=== PATIENT | male | born 1945 | race Caucasian/White ===

== ENCOUNTER 2016-09-10 16:36 | Emergency (ER) | payer MEDICARE, OTHER ==
[~2016-09-10 16:36] MED LIST: ACID CONTROL150 MG PO; COREG 3.125M3.125 MG PO; ECOTRIN81 MG PO; FLAGYL500 MG PO; HYDROCORTISONE30 G3 TOP; LEVAQUIN TAB 5500 MG PO; LISINOPRIL5 MG PO; LOPRESSOR 25 MG25 MG PO; NIZORAL120 ML TOP; PREDNISOLONE SO10 MG PO; PREDNISONE 10 M10 MG PO; PROVENTIL HFA 61 INH INH; SYMBICORT 16010.2 GM INH; SYMBICORT 80-10.2 GM INH; TUDORZA PRESS400 MCG INH; TYLENOL W/CODEIN1 E1 PO; VENTOLIN HFA8 GM INH; ZANTAC150 MG PO; ZESTRIL5 MG PO; ZOCOR 40 MG TAB40 MG PO
[2016-09-10 17:36] LABS: HEMOGLOBIN 16.5 gm/dl (14.0-17.5); RED BLOOD COUNT 5.37 M/UL (4.20-5.50); WHITE BLOOD COUNT 10.3 K/UL (4.5-11.0)
[2016-11-13] MEDS ORDERED: COMBIVENT0.074 GM/I INH (07:06)
[2016-11-13] MEDS ORDERED: COREG 3.125M3.125 MG PO (07:07)
[2016-11-13] MEDS ORDERED: ACID REDUCER150 MG PO (07:08)
[2016-11-13] MEDS ORDERED: CENTRUM SILVER1 EAC1 PO (07:08)
[2016-11-13] MEDS ORDERED: VENTOLIN INHALER INH (07:10)
[2016-11-13] MEDS ORDERED: NORCO 7.5-3251 EACH PO (09:51)
[2016-12-24] MEDS ORDERED: METOPROLOL TART25 MG PO (07:07)
[2016-12-24] MEDS ORDERED: SYMBICORT 16010.2 GM INH (07:07)
[2016-12-24] MEDS ORDERED: SIMVASTATIN40 MG PO (07:10)
== END 2016-09-11 10:45 | disposition home or self-care (01) ==
LOC: ER1 16:36 → ZEROF 09-11 08:00 → ER1 09-11 10:45
PROVIDERS: Emergency Medicine
DX: K57.92 Diverticulitis of intestine, part unspecified, without perforation or abscess without bleeding (principal); I71.4 Abdominal aortic aneurysm, without rupture; K80.20 Calculus of gallbladder without cholecystitis without obstruction; J18.1 Lobar pneumonia, unspecified organism; N43.3 Hydrocele, unspecified; R11.2 Nausea with vomiting, unspecified; D69.6 Thrombocytopenia, unspecified; I11.0 Hypertensive heart disease with heart failure; I50.22 Chronic systolic (congestive) heart failure; J44.9 Chronic obstructive pulmonary disease, unspecified; Z87.891 Personal history of nicotine dependence; Z95.810 Presence of automatic (implantable) cardiac defibrillator; Z79.82 Long term (current) use of aspirin; Z79.899 Other long term (current) drug therapy
CPT/HCPCS: 36415; 71010; 80053; 82150; 82550; 82553; 83605; 83690; 83874; 84484; 85025; 87040; 87077; 87186; 93005; 94664; 96361; 96365; 96366; 96367; 96375; 96376; 99284; J1956; J2270; J2405; J2930; J7050; Q9962

== ENCOUNTER 2016-09-16 20:20 | Observation (INO) | payer MEDICARE, OTHER ==
[~2016-09-16] VITALS: Ht 185.4 cm; Wt 70.3 kg
[2016-09-16 21:42] LABS: HEMOGLOBIN 14.7 gm/dl (14.0-17.5); RED BLOOD COUNT 4.8 M/UL (4.20-5.50); WHITE BLOOD COUNT 13.8 K/UL (4.5-11.0)
[2016-09-16 22:07] LABS: BUN/CREATININE RATIO 18 (0-10)
[2016-09-17] MEDS ORDERED: VENTOLIN/PROVE0.5 ML INH (02:16)
[2016-09-17] MEDS ORDERED: ATROVENT INH S2.5 ML INH (02:17)
[2016-09-17] MEDS ORDERED: SYMBICORT 80-41 INHA INH (02:17)
[2016-09-17] MEDS ORDERED: ZOCOR40 MG PO (02:18)
[2016-09-17] MEDS ORDERED: LOPRESSOR 25 MG25 MG PO (02:20)
[2016-09-18 06:07] LABS: BUN/CREATININE RATIO 24 (0-10)
[2016-09-18] MEDS ORDERED: LEVAQUIN500 MG PO (13:15)
[2016-09-18] MEDS ORDERED: MEDROL DOSEPAK 24 MG PO (13:16)
[2016-11-13] MEDS ORDERED: COMBIVENT0.074 GM/I INH (07:06)
[2016-11-13] MEDS ORDERED: COREG 3.125M3.125 MG PO (07:07)
[2016-11-13] MEDS ORDERED: ACID REDUCER150 MG PO (07:08)
[2016-11-13] MEDS ORDERED: CENTRUM SILVER1 EAC1 PO (07:08)
[2016-11-13] MEDS ORDERED: VENTOLIN INHALER INH (07:10)
[2016-11-13] MEDS ORDERED: NORCO 7.5-3251 EACH PO (09:51)
[2016-12-24] MEDS ORDERED: SYMBICORT 16010.2 GM INH (07:07)
[2016-12-24] MEDS ORDERED: METOPROLOL TART25 MG PO (07:07)
[2016-12-24] MEDS ORDERED: SIMVASTATIN40 MG PO (07:10)
== END 2016-09-18 14:40 | disposition home or self-care (01) ==
LOC: ER1 20:20 → M/S 23:40 → ZEROF 23:40 → ER1 23:40 → M/S 23:40 → ZEROF 09-17 01:16 → M/S 09-17 01:16 → ER1 09-17 01:50 → M/S 09-18 14:40
PROVIDERS: Emergency Medicine; Internal Medicine; ADMIT Internal Medicine
DX: R53.1 Weakness (principal); J44.1 Chronic obstructive pulmonary disease with (acute) exacerbation; K80.20 Calculus of gallbladder without cholecystitis without obstruction; B95.7 Other staphylococcus as the cause of diseases classified elsewhere; I71.4 Abdominal aortic aneurysm, without rupture; I11.0 Hypertensive heart disease with heart failure; I50.20 Unspecified systolic (congestive) heart failure; I25.10 Atherosclerotic heart disease of native coronary artery without angina pectoris; Z87.891 Personal history of nicotine dependence; Z82.49 Family history of ischemic heart disease and other diseases of the circulatory system; Z95.810 Presence of automatic (implantable) cardiac defibrillator
CPT/HCPCS: 96375; 96376; ECHO; 36415; 71010; 71250; 76705; 80053; 81001; 82550; 82553; 83605; 83690; 83874; 83880; 84443; 84484; 85025; 85610; 85730; 87040; 87086; 93005; 93306; 94640; 94664; 96361; 96365; 96374; 99285; G0378; J0692; J1940; J1956; J2920; J3370; J7050

== ENCOUNTER 2016-09-30 15:08 | Emergency (ER) | payer MEDICARE, OTHER ==
[~2016-09-30 15:08] MED LIST changes: +ATROVENT INH S2.5 ML INH; +LEVAQUIN500 MG PO; +MEDROL DOSEPAK 24 MG PO; +SYMBICORT 80-41 INHA INH; +VENTOLIN/PROVE0.5 ML INH; +ZOCOR40 MG PO
[2016-09-30 16:37] LABS: HEMOGLOBIN 13.8 gm/dl (14.0-17.5); RED BLOOD COUNT 4.62 M/UL (4.20-5.50); WHITE BLOOD COUNT 13.3 K/UL (4.5-11.0)
[2016-09-30 16:55] LABS: BUN/CREATININE RATIO 21 (0-10)
[2016-11-13] MEDS ORDERED: COMBIVENT0.074 GM/I INH (07:06)
[2016-11-13] MEDS ORDERED: COREG 3.125M3.125 MG PO (07:07)
[2016-11-13] MEDS ORDERED: CENTRUM SILVER1 EAC1 PO (07:08)
[2016-11-13] MEDS ORDERED: ACID REDUCER150 MG PO (07:08)
[2016-11-13] MEDS ORDERED: VENTOLIN INHALER INH (07:10)
[2016-11-13] MEDS ORDERED: NORCO 7.5-3251 EACH PO (09:51)
[2016-12-24] MEDS ORDERED: METOPROLOL TART25 MG PO (07:07)
[2016-12-24] MEDS ORDERED: SYMBICORT 16010.2 GM INH (07:07)
[2016-12-24] MEDS ORDERED: SIMVASTATIN40 MG PO (07:10)
== END 2016-09-30 20:35 | disposition home or self-care (01) ==
LOC: ER1 15:08
PROVIDERS: Physician Assistant
DX: K57.92 Diverticulitis of intestine, part unspecified, without perforation or abscess without bleeding (principal); K57.90 Diverticulosis of intestine, part unspecified, without perforation or abscess without bleeding; I11.0 Hypertensive heart disease with heart failure; I50.20 Unspecified systolic (congestive) heart failure; Z95.810 Presence of automatic (implantable) cardiac defibrillator; F17.200 Nicotine dependence, unspecified, uncomplicated; Z95.5 Presence of coronary angioplasty implant and graft
CPT/HCPCS: 36415; 80053; 81001; 83690; 85025; 96361; 96374; 96375; 96376; 99284; J2270; J2405; J7050; Q9962

== ENCOUNTER → 2016-10-09 | Outpatient (CLI) | payer MEDICARE, OTHER ==
[~2016-10-09] MED LIST changes: +ACID REDUCER150 MG PO; +CENTRUM SILVER1 EAC1 PO; +COMBIVENT0.074 GM/I INH; +METOPROLOL TART25 MG PO; +NORCO 7.5-3251 EACH PO; +SIMVASTATIN40 MG PO; +VENTOLIN INHALER INH
== END ==
LOC: HEART 5 11:12
DX: Z01.810 Encounter for preprocedural cardiovascular examination (principal); J44.9 Chronic obstructive pulmonary disease, unspecified
CPT/HCPCS: 71010-FX; 94060; 94729

== ENCOUNTER → 2016-10-10 | Outpatient (CLI) | payer MEDICARE, OTHER | LOC: RT 09:47 | DX: R09.02 Hypoxemia (principal) | CPT/HCPCS: 36600; 82803 ==

== ENCOUNTER → 2016-11-07 | Outpatient (CLI) | payer MEDICARE, OTHER | LOC: OPSV2 09:00 | DX: K80.20 Calculus of gallbladder without cholecystitis without obstruction (principal) ==

== ENCOUNTER → 2016-11-13 | Day surgery (SDC) | payer MEDICARE, OTHER ==
[~2016-11-13] VITALS: Ht 182.9 cm; Wt 64.9 kg
== END | disposition home or self-care (01) ==
LOC: OR 05:53
PROVIDERS: Surgery
PROC: 0FT44ZZ Resection of Gallbladder, Percutaneous Endoscopic Approach (ICD-10-PCS; principal; 2016-11-13 07:45)
DX: K80.10 Calculus of gallbladder with chronic cholecystitis without obstruction (principal); K82.8 Other specified diseases of gallbladder; J44.9 Chronic obstructive pulmonary disease, unspecified; I50.22 Chronic systolic (congestive) heart failure; I25.10 Atherosclerotic heart disease of native coronary artery without angina pectoris; E78.5 Hyperlipidemia, unspecified; I25.5 Ischemic cardiomyopathy; I25.2 Old myocardial infarction; G47.30 Sleep apnea, unspecified; I49.5 Sick sinus syndrome; Z87.891 Personal history of nicotine dependence; Z87.19 Personal history of other diseases of the digestive system; Z95.5 Presence of coronary angioplasty implant and graft; Z79.82 Long term (current) use of aspirin; Z79.899 Other long term (current) drug therapy; Z90.89 Acquired absence of other organs
CPT/HCPCS: 94664; J0295; J1200; J2250; J2370; J2405; J2710; J3010; J7030; J7040; J7050; J7120; Q9962

== ENCOUNTER 2016-11-16 15:15 | Emergency (ER) | payer MEDICARE, OTHER ==
[~2016-11-16 15:15] MED LIST changes: -METOPROLOL TART25 MG PO; -SIMVASTATIN40 MG PO
[2016-11-16 18:12] LABS: RED BLOOD COUNT 4.33 M/UL (4.20-5.50); WHITE BLOOD COUNT 12.2 K/UL (4.5-11.0)
[2016-11-16 20:05] LABS: BUN/CREATININE RATIO 22 (0-10)
[2016-12-24] MEDS ORDERED: SYMBICORT 16010.2 GM INH (07:07)
[2016-12-24] MEDS ORDERED: METOPROLOL TART25 MG PO (07:07)
[2016-12-24] MEDS ORDERED: SIMVASTATIN40 MG PO (07:10)
== END 2016-11-16 22:10 | disposition home or self-care (01) ==
LOC: ER1 15:15
PROVIDERS: Specialist/Technologist Athletic Trainer
DX: G89.18 Other acute postprocedural pain (principal); R10.817 Generalized abdominal tenderness; R11.2 Nausea with vomiting, unspecified; I25.10 Atherosclerotic heart disease of native coronary artery without angina pectoris; J44.9 Chronic obstructive pulmonary disease, unspecified; F17.210 Nicotine dependence, cigarettes, uncomplicated; Z90.49 Acquired absence of other specified parts of digestive tract; Z95.810 Presence of automatic (implantable) cardiac defibrillator; Z79.899 Other long term (current) drug therapy
CPT/HCPCS: 36415; 80053; 83690; 85025; 96361; 96374; 96375; 99284; J2270; J2405; J7030; J7050; Q9962

== ENCOUNTER → 2016-12-24 | Day surgery (SDC) | payer MEDICARE, OTHER ==
[~2016-12-24] VITALS: Ht 182.9 cm; Wt 59.0 kg
[~2016-12-24] MED LIST changes: +METOPROLOL TART25 MG PO; +SIMVASTATIN40 MG PO
== END | disposition home or self-care (01) ==
LOC: OR 05:58
PROVIDERS: Surgery
PROC: 0DB48ZX Excision of Esophagogastric Junction, Via Natural or Artificial Opening Endoscopic, Diagnostic (ICD-10-PCS; 2016-12-24)
PROC: 0DBP8ZZ Excision of Rectum, Via Natural or Artificial Opening Endoscopic (ICD-10-PCS; 2016-12-24)
PROC: 0DB98ZX Excision of Duodenum, Via Natural or Artificial Opening Endoscopic, Diagnostic (ICD-10-PCS; principal; 2016-12-24 07:30)
PROC: 0DB68ZX Excision of Stomach, Via Natural or Artificial Opening Endoscopic, Diagnostic (ICD-10-PCS; 2016-12-24 07:30)
DX: Z12.11 Encounter for screening for malignant neoplasm of colon (principal); D12.8 Benign neoplasm of rectum; K29.50 Unspecified chronic gastritis without bleeding; K29.80 Duodenitis without bleeding; K57.30 Diverticulosis of large intestine without perforation or abscess without bleeding; K64.4 Residual hemorrhoidal skin tags; I25.2 Old myocardial infarction; I50.22 Chronic systolic (congestive) heart failure; I25.10 Atherosclerotic heart disease of native coronary artery without angina pectoris; E78.5 Hyperlipidemia, unspecified; J45.909 Unspecified asthma, uncomplicated; Z90.49 Acquired absence of other specified parts of digestive tract; Z86.010 Personal history of colon polyps; Z95.5 Presence of coronary angioplasty implant and graft; Z87.891 Personal history of nicotine dependence; Z79.82 Long term (current) use of aspirin; Z79.899 Other long term (current) drug therapy; Z90.89 Acquired absence of other organs
CPT/HCPCS: J2250; J7040; J7120